=== PATIENT | female | born 1990 | race Caucasian/White ===

== ENCOUNTER 2016-07-21 10:02 | Day surgery (SDC) | payer OTHER ==
[~2016-07-21] VITALS: Ht 160 cm; Wt 59.0 kg
[~2016-07-21 10:02] MED LIST: AUGMENTIN875 MG PO; CIPRO500 MG PO; IBUPROFEN200 M1 PO; MIRENA52 MG IY; NAPROSYN-EC500 MG PO; NOHOMEMEDS; PERIDEX1 ML MM; PRENATAL 19 TA1 EACH PO; PROBIOTIC1 EAC1 PO; PROBIOTIC1 EAC5 PO; TYLENOL325 M1 PO
[2016-07-21 10:43] VITALS: BP 102/58
[2016-07-21 14:32] VITALS: BP 99/49
[2016-07-21 15:25] VITALS: BP 99/55
[2016-07-21 16:50] VITALS: BP 103/63
== END 2016-07-21 17:05 | disposition home or self-care (01) ==
LOC: SDC
PROC: 0UBMXZZ Excision of Vulva, External Approach (ICD-10-PCS; principal; 2016-07-21)
DX: N90.69 Other specified hypertrophy of vulva (principal)
CPT/HCPCS: 88305; J1100; J1170; J1885; J2250; J2405; J3010